=== PATIENT | male | born 1940 | race African-American/Black ===

== ENCOUNTER → 2016-11-30 | Outpatient (CLI) | payer OTHER ==
--- NOTE | ~2016-11-30 | EXE ---
[facility] [place] [address] STRESS ECHOCARDIOGRAM Name: MICHELLE SANTANA Room #: JON Rincon#: [id number] Admission: 11/30/16 Attend Phys: Todd Goldberg MD Discharge: Date of : 40 Date of Service: 11/30/16 1131 Report #: [id number] THIS REPORT FOR: //name// Stress Echocardiography Ordering physician: Todd Goldberg MD Referring physician: Todd Goldberg MD International Accounting Manager: CRYSTAL Jarquin Nurse: Haydee Castellanos RN, BSN Indications/History: Arrythmia, HTN. BP: 152 / HR: 81bpm Height: 69in Weight: 154.7lb 86 Study data: Location: Echo laboratory. Routine. Informed consent was obtained. A baseline ECG was recorded. Treadmill exercise testing was performed using the Owen protocol. The patient exercised for 10 min, to protocol stage 4, to a maximal work rate of 13.4mets. Exercise was terminated due to achievement of target heart rate and moderate fatigue. Transthoracic stress echocardiography. Image quality was excellent. There were no complications. Hemodynamic findings + +---+ +--------+ !Stage !HR !BP (mmHg) !Symptoms! + +---+ +--------+ !Baseline !81 !152/86 (108)!None ! + +---+ +--------+ !Stage 1 !123!172/90 (117)!--------! + +---+ +--------+ !Stage 2 !144!194/96 (129)!--------! + +---+ +--------+ !Stage 3 !162!198/96 (130)!--------! + +---+ +--------+ !Stage 4 !173!218/96 (137)!--------! + +---+ +--------+ !Recovery; 1 min!141!180/90 (120)!--------! + +---+ +--------+ [facility] [address] [place] [address] PEDRO ORNELAS Name: MICHELLE SANTANA Room #: REG CL [place]#: [id number] Admission: 11/30/16 Attend Phys: Todd Goldberg MD Discharge: Date of : 40 Date of Service: 11/30/16 1131 Report #: [id number] !Recovery; 2 min!121! !--------! + +---+ +--------+ !Recovery; 3 min!109!160/70 (100)!--------! + +---+ +--------+ !Recovery; 4 min!103! !--------! + +---+ +--------+ !Recovery; 5 min!96 ! !--------! + +---+ +--------+ !Recovery; 6 min!96 !126/70 (89) !--------! + +---+ +--------+ Max HR: 173bpm (120% max predicted). Max predicted HR: 144bpm.Target HR achieved. Heart rate response was normal. There was a normal resting blood pressure with an appropriate response to stress. The rate-pressure product for the peak heart rate and blood pressure was 88151cx Hg/min. No chest pain. ECG findings Baseline ECG: Normal. Stress ECG: There were no stress arrhythmias or conduction abnormalities. The stress ECG was equivocal for ischemia. Echo findings Baseline: LV size was normal. LV global systolic function was normal. The estimated LV ejection fraction was 55%. Normal wall motion; no LV regional wall motion abnormalities. Peak stress: LV size was reduced appropriately. LV global systolic function was vigorous. The estimated LV ejection fraction was 65%. Normal wall motion; no LV regional wall motion abnormalities. Summary Clinical response to exercise stress: non-ischemic. ECG response to exercise stress: non-diagnostic. Echo response to exercise stress: non-ischemic. <ELECTRONICALLY SIGNED> By: Todd Goldberg MD 11/30/16 1238 1131 1238 Todd Goldberg MD /jack
== END ==
LOC: CV 10:57
DX: I49.9 Cardiac arrhythmia, unspecified (principal); I10 Essential (primary) hypertension

== ENCOUNTER → 2020-04-25 | Outpatient (CLI) | payer OTHER | LOC: SJCVC 15:07 | PROVIDERS: ATTEND Internal Medicine | DX: I47.2 Ventricular tachycardia (principal); I10 Essential (primary) hypertension; I77.810 Thoracic aortic ectasia; R00.1 Bradycardia, unspecified; I34.0 Nonrheumatic mitral (valve) insufficiency; E78.5 Hyperlipidemia, unspecified; Z79.899 Other long term (current) drug therapy; Z87.891 Personal history of nicotine dependence ==

== ENCOUNTER → 2020-11-07 | Outpatient (CLI) | payer OTHER | LOC: SJCVCIMAG 08:25 | PROVIDERS: ATTEND Internal Medicine Cardiovascular Disease | DX: I08.8 Other rheumatic multiple valve diseases (principal); R00.1 Bradycardia, unspecified; I10 Essential (primary) hypertension; I47.2 Ventricular tachycardia; I77.810 Thoracic aortic ectasia; Z79.899 Other long term (current) drug therapy; Z87.891 Personal history of nicotine dependence ==

== ENCOUNTER → 2021-11-11 | Outpatient (CLI) | payer OTHER | LOC: SJCVCIMAG 08:46 | PROVIDERS: ATTEND Internal Medicine Cardiovascular Disease | DX: I77.819 Aortic ectasia, unspecified site (principal); I77.810 Thoracic aortic ectasia; I10 Essential (primary) hypertension; R42 Dizziness and giddiness; R00.1 Bradycardia, unspecified; R60.9 Edema, unspecified; Z88.8 Allergy status to other drugs, medicaments and biological substances; Z79.899 Other long term (current) drug therapy; Z87.891 Personal history of nicotine dependence ==